=== PATIENT | male | born 1960 | race Caucasian/White ===

== ENCOUNTER 2025-05-25 02:50 | Emergency (ER) | payer OTHER ==
[~2025-05-25] VITALS: Ht 172.7 cm; Wt 82.0 kg
[2025-05-25 02:53] VITALS: O2SAT 98
[2025-05-25 03:30] VITALS: PULSE 126; RESP 33; O2SAT 89
[2025-05-25] MEDS ORDERED: FENTANYL 2500MCG/250ML PMX 250 ML IV SCH (03:45)
[2025-05-25 03:47] LABS: HEMATOCRIT. 29.0 % (42.0-52.0); HEMOGLOBIN. 9.2 g/dL (14.0-18.0); MEAN PLATELET VOLUME 10.1 fl (7.4-10.4); PLATELET 581 x1000/uL (130-400); RED BLOOD CELL COUNT 3.34 mill/uL (4.7-6.1); RED CELL DISTRIBUTION WIDTH 17.3 % (11.6-14.6)
[2025-05-25 04:01] LABS: INR 1.1
[2025-05-25] MEDS: PROPOFOL 10MG/ML 100ML 100 ML IV SCH (04:08)
[2025-05-25 04:09] LABS: BG BASE EXCESS -30.0 mmol/L (-2.0-3.0); BG CARBOXYHEMOGLOBIN 0.3 % (0.5-1.5); BG DEOXYHEMOGLOBIN 6.6 % (0.0-5.0); BG FRACTION INSPIRED OXYGEN 100; BG HCO3 ACT 4.1 mmol/L (21.0-28.0); BG METHEMOGLOBIN 0.2 % (0.5-1.5); BG OXYGEN SATURATION 93.4 % (94.0-98.0); BG OXYHEMOGLOBIN 92.9 % (94.0-98.0); BG PCO2 31.9 mmHg (35.0-48.0); BG PEEP (cmH2O) 5.0 cmH2O; BG PH 6.731 (7.350-7.450); BG PO2 119.9 mmHg (83.0-108.0); BG SAMPLE SITE RIGHT RADIAL; BG TIDAL VOLUME(mL) 450.0 mL; BG TOTAL HEMOGLOBIN 8.8 g/dL (13.5-17.5); BG TOTAL RESPIRATORY RATE 20 b/min; BG VENT MODE VENT - AC
[2025-05-25] MEDS: NOREPINEPHRINE 8MG/250ML PMX 250 ML IV PRN (04:09)
[2025-05-25 04:12] LABS: ASPARTATE AMINOTRANSFERASE 12 IU/L (<34); BILIRUBIN DIRECT 0.1 mg/dL (<=3.0); BILIRUBIN TOTAL 0.3 mg/dL (0.1-1.0); PROTEIN TOTAL 7.3 g/dL (6.0-8.3); TROPONIN I HIGH SENSITIVITY 136 ng/L (3.0-53)
[2025-05-25 04:22] LABS: CREATININE 7.9 mg/dL (0.6-1.3); UREA NITROGEN BLOOD 112 mg/dL (9-23)
[2025-05-25] MEDS ORDERED: VANCOMYCIN 1G PREMIX 200 ML IV NR (04:45)
[2025-05-25] MEDS: PIPERACILLIN/TAZO 3.375G/50ML 50 ML IV NR (05:21)
[2025-05-25] MEDS: SODIUM CHLORIDE 0.9% 250 ML IV ONE (05:21)
[2025-05-25] MEDS: FENTANYL CITRATE 2,500 MCG in SODIUM CHLORIDE 0.9% 200 ML IV PRN (05:28)
[2025-05-25 06:18] VITALS: PULSE 57; RESP 28; O2SAT 91
[2025-05-25] MEDS ORDERED: SODIUM BICARBONATE 8.4% 50MEQ/50ML SYR IV ONE ×2 (06:39→06:43)
[2025-05-25 07:00] VITALS: BP 78/29; PULSE 125; RESP 19; TEMP 36.3; O2SAT 72
[2025-05-25] MEDS ORDERED: SODIUM BICARBONATE 150 MEQ in DEXTROSE 5% WATER 850 ML IV SCH (07:00)
[2025-05-25] MEDS ORDERED: NOREPINEPHRINE 8MG/250ML PMX 250 ML IV PRN (07:00)
[2025-05-25] MEDS ORDERED: VASOPRESSIN 20 UNIT in SODIUM CHLORIDE 0.9% 99 ML IV PRN (07:00)
[2025-05-25] MEDS ORDERED: PHENYLEPHRINE 50MG/250ML PMX 250 ML IV PRN (07:00)
[2025-05-25] MEDS ORDERED: EPINEPHRINE 5 MG in SODIUM CHLORIDE 0.9% 245 ML IV PRN (07:00)
[2025-05-25] MEDS ORDERED: DOPAMINE 400MG/250ML PREMIX 250 ML IV ONE (07:03)
[2025-05-25 09:06] LABS: BAND% 5.0 % (1.0-6.0); LYMPHOCYTES % MANUAL 4.0 % (20.0-50.0); MONOCYTES % MANUAL 11.0 % (2.0-8.0); NEUTROPHILS % MANUAL 80.0 % (45.0-75.0); PLATELET ESTIMATE INCREASED
== END 2025-05-25 07:07 ==
LOC: ER 02:50 → CVICU 04:54 → UNDOADMIN 04:54 → EDBEDREQ 05:03 → EDBEDREQSVC 05:03 → EDBEDREQTM 05:03 → ENRESERV 06:43 → ER 07:07 → CANBEDREQ 07:19
DX: A41.9 Sepsis, unspecified organism (principal); R65.21 Severe sepsis with septic shock; I46.9 Cardiac arrest, cause unspecified; N18.6 End stage renal disease; E83.42 Hypomagnesemia; J96.00 Acute respiratory failure, unspecified whether with hypoxia or hypercapnia; Z20.822 Contact with and (suspected) exposure to COVID-19
CPT/HCPCS: 80076; 80048; 80320; 82962; 83880; 83605; 83690; 83735; 85025; 85610; 86850; 86900; 86901; 87040; 84484; 36415; 84145; 71045; 82805; 82375; 92950; 93005; 31500; 36556; 96368; 96365; 99291; 87426; 36600; J3490 ×3; J2543; J2704; J7070; J1265; 94002; 94070; 94664; G0480